=== PATIENT | female | born 1995 | race Two or more races ===

== ENCOUNTER 2017-12-07 17:21 | Emergency (ER) | payer OTHER ==
[~2017-12-07] VITALS: Ht 162.6 cm; Wt 76.2 kg
[2017-12-07] MEDS ORDERED: PRENATAL + DHA1 EAC1 (18:33)
== END 2017-12-07 21:10 | disposition home or self-care (01) ==
LOC: ER 17:21
DX: O98.511 Other viral diseases complicating pregnancy, first trimester (principal); B34.9 Viral infection, unspecified; Z34.01 Encounter for supervision of normal first pregnancy, first trimester

== ENCOUNTER → 2017-12-09 14:37 | Outpatient (CLI) | payer OTHER ==
[~2017-12-09 14:37] MED LIST: PRENATAL + DHA1 EAC1
== END | disposition home or self-care (01) ==
LOC: LAB 14:37
DX: R51 Headache (principal); J20.8 Acute bronchitis due to other specified organisms; J10.89 Influenza due to other identified influenza virus with other manifestations